=== PATIENT | male | born 1990 | race African-American/Black ===

== ENCOUNTER 2018-12-27 15:26 | Emergency (ER) | payer OTHER, SELFPAY ==
[2018-12-27] MEDS ORDERED: Ketorolac Tromethamine 60 MG/2 ML VIAL ONE (16:06)
--- NOTE | 2018-12-27 16:20 | RAD ---
FOUR VIEWS LEFT KNEE: 12/27/18 HISTORY: Pain. COMPARISON: None. FINDINGS: No fracture. No malalignment. No joint effusion. The joint spaces are preserved. IMPRESSION: Unremarkable four views left knee. If there is concern for internal derangement, MRI can be performed on a nonemergent lao. POS: [facility]
== END 2018-12-27 17:12 | disposition home or self-care (01) ==
LOC: ERS 15:26
DX: M25.562 Pain in left knee (principal); Z87.891 Personal history of nicotine dependence; W19.XXXA Unspecified fall, initial encounter
CPT/HCPCS: 96372; J1885

== ENCOUNTER 2019-02-13 12:19 | Outpatient (CLI) | payer OTHER ==
--- NOTE | 2019-02-13 13:30 | CT ---
LEFT LOWER EXTREMITY CT SCAN WITHOUT IV CONTRAST: Date: 02/13/19 HISTORY: Lateral dislocation of left patella. Knee pain around the patella following a fall and injury 1 month ago. FINDINGS: There is some soft tissue thickening and minimal ossification within the region of the upper medial c ollateral ligament, possibly related to some residual enthesophytic changes or prior injury. No evide nce for acute fracture or dislocation. No significant abnormal joint effusion. IMPRESSION: Soft tissue swelling in the region of the medial collateral ligament with some associated ossificatio n of uncertain etiology. This could be much better demonstrated with a follow-up MRI. No acute fractu re or dislocation, or abnormal joint effusion. POS: [facility]
== END 2019-02-13 12:20 | disposition home or self-care (01) ==
LOC: BICCT 12:19
PROVIDERS: ATTEND Family Medicine
DX: S83.412D Sprain of medial collateral ligament of left knee, subsequent encounter (principal); S83.015D Lateral dislocation of left patella, subsequent encounter; M79.89 Other specified soft tissue disorders

== ENCOUNTER 2020-04-01 17:05 | Emergency (ER) | payer OTHER, SELFPAY ==
[2020-04-02 10:41] LABS: SARS-CoV-2 MS2 Positive; SARS-CoV-2 N Gene Negative; SARS-CoV-2 S Gene Negative; SARS-CoV-2 orf1ab Negative
== END 2020-04-01 18:25 | disposition home or self-care (01) ==
LOC: ERS 17:05
DX: Z20.828 Contact with and (suspected) exposure to other viral communicable diseases (principal); Z87.891 Personal history of nicotine dependence
CPT/HCPCS: 87635; 99283; U0003

== ENCOUNTER 2020-05-02 14:24 | Emergency (ER) | payer SELFPAY ==
--- NOTE | 2020-05-02 16:02 | RAD ---
TWO VIEW CHEST: History: Chest pain. FINDINGS: The lungs appear clear. Heart and mediastinum appear normal. Osseous structures are normal. IMPRESSION: Negative chest. POS: [facility]
== END 2020-05-02 16:20 | disposition home or self-care (01) ==
LOC: ERS 14:24
DX: R07.89 Other chest pain (principal); Z87.891 Personal history of nicotine dependence
CPT/HCPCS: 71046; 99284

== ENCOUNTER 2022-04-28 01:45 | Emergency (ER) | payer BC | END 2022-04-28 02:11 | disposition home or self-care (01) | LOC: ERS 01:45 | DX: U07.1 COVID-19 (principal); Z87.891 Personal history of nicotine dependence | CPT/HCPCS: 87804; 99283; U0003; U0005 ==